=== PATIENT | male | born 1950 | race Caucasian/White ===

== ENCOUNTER 2021-01-21 04:13 | Observation (INO) ==
[2021-01-21] MEDS ORDERED: Naloxone 0.4 MG/ML INJ IVP PRN (07:41)
[2021-01-21] MEDS ORDERED: Ondansetron 4 MG/2 ML VIAL IVP PRN (07:41)
[2021-01-21] MEDS ORDERED: Perflutren Lipid Microsphere 1.3 ML in 0.9 % Sodium Chloride 8.7 ML IVP PRN (09:51)
[2021-01-21] MEDS ORDERED: Metoprolol XL (24 HR) Succ 50 MG TAB.ER.24H PO SCH (10:00)
[2021-01-21 10:49] LABS: Hematocrit 43.6 % (37.5-50.1); Hemoglobin 14.5 g/dL (12.9-16.9); Mean Corpuscular HGB Conc 33.3 g/dL (31.6-35.5); Mean Corpuscular Hemoglobin 29.3 pg (28.0-33.3); Mean Corpuscular Volume 88.1 fL (83.0-100.0); Mean Platelet Volume 9.5 fL (9.4-12.4); Platelet Count 226 K/mcL (140-400); Red Blood Count 4.95 M/mcL (4.19-5.50); Red Cell Distribution Width 11.8 % (11.5-14.5); White Blood Count 6.7 K/mcL (4.3-11.1)
[2021-01-21 11:13] LABS: BUN/Creatinine Ratio 11 (6-26); Blood Urea Nitrogen 11 mg/dL (8-23); Calcium 8.7 mg/dL (8.6-10.3); Carbon Dioxide 27 mEq/L (23-29); Chloride 99 mEq/L (98-107); Glucose 174 mg/dL (70-105); Magnesium 1.9 mg/dL (1.6-2.6); Osmolality,Calculated 278 (280-300); Phosphorous 2.8 mg/dL (2.7-4.5); Potassium 3.9 mEq/L (3.5-5.1); Sodium 132 mEq/L (136-145); eGFR For African Americans > 60 (> 60); eGFR For Non-African Americans > 60 (> 60)
[2021-01-21 11:19] LABS: Chol/HDL Ratio 4.4 (0-4.9)
[2021-01-21 11:21] LABS: Thyroid Stimulating Hormone 1.741 mcIU/mL (0.340-5.600)
[2021-01-21 11:43] LABS: Estimated Average Glucose 137 mg/dl; Hemoglobin A1C 6.4 %
[2021-01-21 12:15] VITALS: BP 135/87
[2021-01-21] MEDS ORDERED: *HR* Rivaroxaban 10 MG TABLET PO SCH ×2 (12:30→17:00)
[2021-01-21] MEDS ORDERED: Loratadine 10 MG TABLET PO PRN (13:49)
[2021-01-21] MEDS ORDERED: Melatonin 3 MG TABLET PO PRN (21:00)
[2021-01-22] MEDS ORDERED: *HR* Enoxaparin 40 MG/0.4 ML SYRINGE SQ SCH (06:00)
[2021-01-22] MEDS ORDERED: hydroCHLOROthiazide 25 MG TABLET PO SCH (09:00)
== END 2021-01-21 15:31 | disposition home or self-care (01) ==
LOC: 3BNU → SUATTDRO 06:22
PROVIDERS: ADMIT Internal Medicine; ATTEND Internal Medicine